=== PATIENT | female | born 1965 | race Caucasian/White ===

== ENCOUNTER 2019-07-18 05:25 | Inpatient (IN) | payer MEDICARE, OTHER ==
[2019-07-17 15:37] LABS: BASOPHILS # (AUTO) 0.1 X10'3 (0-0.2); BASOPHILS % (AUTO) 1.3 % (0-1); EOSINOPHILS # (AUTO) 0.1 X10'3 (0-0.9); LYMPHOCYTES # (AUTO) 1.8 X10'3 (1.1-4.8); LYMPHOCYTES % (AUTO) 32.1 % (21-51); MEAN CORPUSCULAR HEMOGLOBIN 31.9 PG (27.0-31.0); MEAN CORPUSCULAR VOLUME 91.2 FL (78-98); MEAN PLATELET VOLUME 7.2 FL (7.4-10.4); MONOCYTES # (AUTO) 0.5 X10'3 (0-0.9); MONOCYTES % (AUTO) 8.3 % (2-12); NEUTROPHILS # (AUTO) 3.2 X10'3 (1.8-7.7); NEUTROPHILS % (AUTO) 56.3 % (42-75); PRE OP HEMATOCRIT 40.5 % (35.0-45.0); PRE OP HEMOGLOBIN 14.2 g/dL (12.0-16.0); PRE OP PLATELET COUNT 283 X10'3 (140-440); RED BLOOD COUNT 4.45 X10'6 (4.20-5.60)
[2019-07-17 15:43] LABS: CLARITY,URINE CLEAR (Clear); COLOR,URINE YELLOW (Yellow); GLUCOSE, URINE NEGATIVE (Neg); KETONES,URINE NEGATIVE (Neg); LEUKOCYTE ESTERASE ,URINE NEGATIVE (Neg); NITRITES, URINE NEGATIVE (Neg); OCCULT BLOOD,URINE NEGATIVE (Neg); PH,URINE 5.5 (4.8-8.0); PROTEIN,URINE NEGATIVE (Neg)
[2019-07-17 15:44] LABS: UA COLLECTION TYPE CLN CATCH MIDSTREAM
[2019-07-17 15:54] LABS: PRE OP PROTIME 9.7 SECONDS (9.0-12.0)
[2019-07-17 16:01] LABS: ALKALINE PHOSPHATASE 86 IU/L (46-116); BLOOD UREA NITROGEN 13 MG/DL (7-18); BUN/CREATININE RATIO 16.3 (6.6-38.0); CALCIUM 8.8 MG/DL (8.5-10.1); CHLORIDE 103 MMOL/L (99-107); PRE OP ALT 23 U/L (30-65); PRE OP ANION GAP 6 (8-16); PRE OP AST 33 U/L (10-37); PRE OP BILIRUB, TOTAL 0.7 MG/DL (0.0-1.0); PRE OP GLUCOSE 111 MG/DL (70-104); PRE OP POTASSIUM 3.8 MMOL/L (3.4-5.1); PRE OP SODIUM 140 MMOL/L (135-145); TOTAL CARBON DIOXIDE 31.2 MMOL/L (24-32); eGFR 74 ML/MIN
[2019-07-18] VITALS (21 sets, daily range): BP systolic 111–166; BP diastolic 73–99
[~2019-07-18] VITALS: Ht 154.9 cm; Wt 49.9 kg
[~2019-07-18 05:25] MED LIST: ALBU18HF2 INH; BENZ-16 PO; GUAI600T45 PO; HYDR-4383 PO; LEVO88TA39 PO
[2019-07-18] MEDS ORDERED: famotidine 20mg tablet PO ONE (05:30)
[2019-07-18] MEDS ORDERED: ringers solution, lacted 1,000 ML IV SCH ×2 (05:30→08:50)
[2019-07-18] MEDS ORDERED: cefazolin/dext.iso 2gm/100 ML IV ONE (05:30)
[2019-07-18] MEDS ORDERED: LIDOcaine 1% (10mg/ml) 2ml vial ONE (06:11)
[2019-07-18] MEDS ORDERED: iohexol 300mg/ml 100ml inj. ONE (07:24)
[2019-07-18] MEDS ORDERED: fentaNYL /PF 50mcg/ml 5ml ampule ONE (07:41)
[2019-07-18] MEDS ORDERED: midazolam 2 mg/2 ml injection ONE (07:41)
[2019-07-18] MEDS ORDERED: proCHLORperazine 10 MG/2 ml inj IV PRN (08:50)
[2019-07-18] MEDS ORDERED: ondansetron/PF 4mg/2ml inj IV PRN ×2 (08:50→09:25)
[2019-07-18] MEDS ORDERED: meperidine/PF 25mg/ml syringe IV PRN ×3 (08:50)
[2019-07-18] MEDS ORDERED: morphine 4 MG/ML inj SYRINge IV PRN ×4 (08:50→09:25)
[2019-07-18] MEDS ORDERED: BUPIVAcaine/PF 2.5 mg/ml (0.25%) 30ml vial ONE (09:07)
[2019-07-18] MEDS ORDERED: albuterol 2.5 MG/3 ML nebule NEB PRN (09:25)
[2019-07-18] MEDS ORDERED: metoclopramide 5 mg/ml inj IV PRN (09:25)
[2019-07-18] MEDS ORDERED: naloxone 0.4 mg/ml inj IV PRN (09:25)
[2019-07-18] MEDS ORDERED: HYDROcodone/acetaminophen 10/325mg tab PO PRN (09:25)
[2019-07-18] MEDS ORDERED: CADD PCA waste documentation MC PRN (09:25)
[2019-07-18] MEDS ORDERED: HYDROmorphone inj. 0.5 MG/0.5 ML DISP.SYRIN IV PRN (09:25)
--- NOTE | 2019-07-18 09:25 | NUR ---
Received from OR via surgical bed, accompanied by Anesthesiologist TRIP and report given by Anesthesiolgist. Pt has chest tube to suction, VS WNL including mask at 10L O2 100%. Chest tube site CDI with foam tape on. Pt states no pain at this time, raspy cough and she states with phlegm in the back of her throat, but no apparent swelling to airway and O2 sat remains 100% when coughing or talking. SCDs placed on patient. ART line present good waveform after zeroing but will be DC'd per MD.
--- NOTE | 2019-07-18 09:40 | NUR ---
Dr Myles at bedside giving patient update, answering questions. MD observed chest tube, and chest x-ray. No new orders, pleased with progress.
--- NOTE | 2019-07-18 10:15 | NUR ---
ART line DC'd without incident, pressure dressing applied.
--- NOTE | 2019-07-18 10:42 | NUR ---
Report given to Pancho RN on surgical via telephone.
--- NOTE | 2019-07-18 11:05 | NUR ---
Report called to receiving nurse. Transferred via surgical bed, on tele number [phone] Belongings sent with patient on bed, glasses on patient. Special Issues communicated to receiving nurse. Pt settled into room 354C with BLL, call light within reach, receiving nurse at bedside. Pt alert and oriented, understanding process of transfer. All questions from receiving nurse answered. Tele on, SCDs on, chest tube put to suction upon arrival.
--- NOTE | 2019-07-18 11:07 | NUR ---
Received from PACU in stable condition. VSS. Chest tube hooked up to suction. Oriented pt and spouse to room, unit, and plan of care.
[2019-07-18] MEDS: HYDROcodone/acetaminophen 10/325mg tab PO PRN ×3 (11:31→20:22)
[2019-07-18] MEDS: potassium Cl 20mEq in D5-NS 1,000 ML IV SCH (12:00)
[2019-07-18] MEDS: ketorolac tromethamine 15mg/ml inj. IV SCH ×2 (13:14→20:23)
[2019-07-18] MEDS: ceFAZolin 1GM/D5W- ADD-VANTAGE 50 ML IV SCH ×2 (15:30→23:55)
--- NOTE | 2019-07-18 18:01 | NUR ---
Problems reprioritized. Patient report given, questions answered & plan of care reviewed with jaki Rojas
--- NOTE | 2019-07-18 18:05 | NUR ---
Patient in room [facility]. I have received report from SHERWIN Kay and had the opportunity to ask questions and assume patient care. Addendum: 07/18/19 at 1806 by Maribeth Silva RN Amended: Links added.
[2019-07-18] MEDS: gabapentin 300mg capsule PO SCH (20:23)
[2019-07-19] VITALS: BP 125/81
[2019-07-19] MEDS: ketorolac tromethamine 15mg/ml inj. IV SCH ×2 (03:14→08:07)
[2019-07-19] MEDS: potassium Cl 20mEq in D5-NS 1,000 ML IV SCH ×2 (03:14→10:21)
--- NOTE | 2019-07-19 06:20 | NUR ---
Patient in room [facility]. I have received report from Karen COURTNEY and had the opportunity to ask questions and assume patient care.
--- NOTE | 2019-07-19 06:30 | NUR ---
Patient in room [facility]. I have received report from Karen COURTNEY and had the opportunity to ask questions and assume patient care.
--- NOTE | 2019-07-19 06:36 | NUR ---
Problems reprioritized. Patient report given, questions answered & plan of care reviewed with SHERWIN STEVENSON. Addendum: 07/19/19 at 0637 by Maribeth Silva RN Amended: Links added.
[2019-07-19 07:18] VITALS: BP 139/84
[2019-07-19] MEDS: gabapentin 300mg capsule PO SCH (08:06)
--- NOTE | 2019-07-19 09:00 | NUR ---
Dr. Alvarez removed chest tube at bedside with no complications. Pt tolerated procedure well. Duoderm applied to chest tube site.
[2019-07-19] MEDS ORDERED: HYDR-4353 PO (11:13)
[2019-07-19] MEDS: HYDROcodone/acetaminophen 10/325mg tab PO PRN (11:29)
[2019-07-19 12:02] VITALS: BP 119/80
--- NOTE | 2019-07-19 12:52 | NUR ---
Pt discharged with all belongings. Pt understands to follow up with dr. Myles. [place] triplecate given to patient. IV taken out. Tele taken off. to take pt home. wheel chair to front lobby.
== END 2019-07-19 14:07 | disposition home or self-care (01) | DRG 168 ==
LOC: PAS IN 05:25 → EDSTATUS 07:30 → SUR 3N 11:17
PROVIDERS: ADMIT Surgery; ATTEND Surgery
PROC: BW2F1ZZ Computerized Tomography (CT Scan) of Neck using Low Osmolar Contrast (ICD-10-PCS; 2019-07-18)
PROC: 0W9B00Z Drainage of Left Pleural Cavity with Drainage Device, Open Approach (ICD-10-PCS; 2019-07-18)
PROC: 0WBC0ZX Excision of Mediastinum, Open Approach, Diagnostic (ICD-10-PCS; principal; 2019-07-18 07:32)
DX: D15.2 Benign neoplasm of mediastinum (principal); J44.9 Chronic obstructive pulmonary disease, unspecified; M81.0 Age-related osteoporosis without current pathological fracture; E05.00 Thyrotoxicosis with diffuse goiter without thyrotoxic crisis or storm; Z90.710 Acquired absence of both cervix and uterus; Z90.49 Acquired absence of other specified parts of digestive tract; Z79.899 Other long term (current) drug therapy; Z87.891 Personal history of nicotine dependence; Z80.8 Family history of malignant neoplasm of other organs or systems; Z82.49 Family history of ischemic heart disease and other diseases of the circulatory system
CPT/HCPCS: 36415; 71045; 80053; 81003; 82948; 84443; 85025; 85610; 85730; 86885; 86900; 86901; 87070; 87075; 87081; 87102; 88300; 88305; 88331; 88341; 88342; 93005; 97161; 97530; A4215; A4618; A6258; A6449; A7000; A7048; C1758; G0378; J0690; J1885; J2001; J2175; J2250; J2270; J3010; J3480; J3490; J7120; Q9967